=== PATIENT | male | born 2000 | race Two or more races ===

== ENCOUNTER 2022-04-07 23:26 | Emergency (ER) | payer OTHER ==
[~2022-04-07] VITALS: Ht 172.7 cm; Wt 56.7 kg
--- NOTE | 2022-04-07 23:50 | NUR ---
BIBS. R FOREARM PAIN S/P FELL WHILE ICE SKATING. PATIENT IS AAOX4. ABLE TO MAKE NEEDS KNOWN. PLACED COMFORTABLY IN BED. VITALS CHECKED.
[2022-04-08] MEDS ORDERED: IBUPROFEN 400 MG TABLET PO ONE
[2022-04-08] MEDS ORDERED: IBUPROFEN 400 MG TABLET ONE (00:08)
--- NOTE | 2022-04-08 00:15 | NUR ---
PSYCHOLOGY TEACHER AT BEDSIDE
[2022-04-08 01:14] VITALS: BP 101/54
--- NOTE | 2022-04-08 01:14 | NUR ---
Patient discharged to home in stable condition. Written and verbal after care instructions given. Patient verbalizes understanding of instruction.
== END 2022-04-08 01:15 | disposition home or self-care (01) ==
LOC: ER 23:43
DX: S50.11XA Contusion of right forearm, initial encounter (principal); V00.131A Fall from skateboard, initial encounter; Y93.21 Activity, ice skating; Y92.89 Other specified places as the place of occurrence of the external cause; Y99.8 Other external cause status
CPT/HCPCS: 73090-TC